=== PATIENT | female | born 1960 | race Caucasian/White ===

== ENCOUNTER 2017-11-29 15:14 | Emergency (ER) | payer MEDICARE, BC ==
[2017-11-29] MEDS ORDERED: Sodium Chloride 0.9% 1,000 ML IV ONE (15:47)
[2017-11-29] MEDS ORDERED: Ondansetron 4 MG/2 ML SDV IV ONE (15:47)
--- NOTE | 2017-11-29 15:50 | EDM.PDOC ---
ED HPI GENERAL MEDICAL PROBLEM - General Chief Complaint: Back Pain or Injury Stated Complaint: HEADACHE/BACK PAIN [id number] Time Seen by Provider: 11/29/17 15:35 Source of Information: Reports: Patient History Limitations: Reports: No Limitations - History of Present Illness INITIAL COMMENTS - FREE TEXT/NARRATIVE: This 57 yo female patient reports to the ED with a headache. The patient reports her headache started on 11/25/17. The patient has been seen by Dr. Obregon (yesterday) and given a pill for nausea and oxycodone for her headaches. The patient reports she called back to Dr. Obregon's office today and was advised to come to the ED. The patient reports that she still has a headache. 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 Obregon) Headache Pain Score (Numeric/FACES): 6 - Related Data Allergies Allergy/AdvReac Type Severity Reaction Status Date / Time No Known Allergies Allergy Verified 07/21/15 07:45 Home Meds: Home Meds Folic Acid 1 mg PO DAILY 01/19/15 [History] Methotrexate Sodium [Methotrexate] 6 tab PO WEEKLY 01/19/15 [History] Albuterol Sulfate [Proair Hfa] 1 puff INH ASDIRECTED 07/17/15 [History] Methylcellulose (with Sugar) [Citrucel] 1 tbsp PO DAILY 07/20/15 [History] Abatacept [Orencia] 125 mg IV WEEKLY 11/29/17 [History] Ondansetron [Zofran ODT] 4 mg PO PRN 11/29/17 [History] oxyCODONE 5 mg PO PRN 11/29/17 [History] Past Medical History HEENT History: Reports: None Cardiovascular History: Reports: None Respiratory History: Reports: COPD Gastrointestinal History: Reports: Irritable Bowel Syndrome Other Gastrointestinal History: LACTOSE INTOLERANCE Genitourinary History: Reports: None BULLION WEIGHER History: Reports: Other BULLION WEIGHER History: FIBROCYSTIC CHANGES OF LEFT BREAST Musculoskeletal History: Reports: Arthritis, RA Other Musculoskeletal History: CLAVICAL FRACTURE; HX OF AC SEPERATION Neurological History: Reports: None Psychiatric History: Reports: None Other Psychiatric History: NICOTINE Endocrine/Metabolic History: Reports: None Other Endocrine/Metabolic History: HIRSUTISM Hematologic History: Reports: None Other Hematologic History: THROMBOCYTOPENIA Immunologic History: Reports: None Oncologic (Cancer) History: Reports: None Dermatologic History: Reports: None - Infectious Disease History Infectious Disease History: Reports: Chicken Pox, Measles, Mumps - Past Surgical History HEENT Surgical History: Reports: None Respiratory Surgical History: Reports: None Female Surgical History: Reports: Breast Biopsy, Hysterectomy Musculoskeletal Surgical History: Reports: None Social & Family History - Family History Family Medical History: Noncontributory - Tobacco Use Smoking Status *Q: Current Every Day Smoker Years of Tobacco use: 20 Packs/Tins Daily: 1 - Caffeine Use Caffeine Use: Reports: Soda, Tea - Recreational Drug Use Recreational Drug Use: No ED ROS GENERAL - Review of Systems Review Of Systems: ROS reveals no pertinent complaints other than HPI. - Physical Exam Exam: See Below Exam Limited By: No Limitations General Appearance: Alert, WD/WN, Severe Distress, Thin Eye Exam: Bilateral Eye: EOMI, Normal Inspection, PERRL Ears: Normal External Exam, Normal Canal, Hearing Grossly Normal, Normal TMs Nose: Normal Inspection, Normal Mucosa, No Blood Throat/Mouth: Normal Inspection, Normal Lips, Normal Teeth, Normal Gums, Normal Oropharynx, Normal Voice, No Airway Compromise Head Exam: Atraumatic, Normocephalic Neck: Normal Inspection, Supple, Non-Tender, Full Range of Motion Respiratory/Chest: No Respiratory Distress, Lungs Clear, Normal Breath Sounds, No Accessory Muscle Use, Chest Non-Tender Cardiovascular: Normal Peripheral Pulses, Regular Rate, Rhythm, No Edema, No Gallop, No JVD, No Murmur, No Rub GI/Abdominal: Normal Bowel Sounds, Soft, Non-Tender, No Organomegaly, No Distention, No Abnormal Bruit, No Mass (Female) Exam: Deferred Rectal (Female) Exam: Deferred Neuro Exam (Abbreviated): Alert, Oriented, CN II-XII Intact, Normal Cognition Back Exam: Normal Inspection, Full Range of Motion, NT Extremities: Normal Inspection, Normal Range of Motion, Non-Tender, No Pedal Edema, Normal Capillary Refill Psychiatric: Normal Affect, Normal Mood Skin Exam: Warm, Dry, Intact, Normal Color, No Rash Course - Vital Signs Last Recorded V/S: Last Vital Signs Temp 37.4 C 11/29/17 17:24 Pulse 64 11/29/17 17:24 Resp 16 11/29/17 17:24 BP 122/50 L 11/29/17 17:24 Pulse Ox 90 L 11/29/17 17:24 - Orders/Labs/Meds Orders: Active Orders 24 hr Category Date Time Status Head wo Cont [CT] Urgent Exams 11/29/17 15:43 Taken UA W/MICROSCOPIC [URIN] Stat Lab 11/29/17 16:02 Ordered [facility] [REF] Urgent Lab 11/29/17 16:04 Received Labs: Laboratory Tests 11/29/17 11/29/17 11/29/17 Range/Units 16:02 16:04 16:04 WBC (5.0-10.0) 10^3/uL RBC (4.2-5.4) 10^6/uL Hgb (12.0-16.0) g/dL Hct (37.0-47.0) % MCV (80-100) fL MCH (27.0-34.0) pg MCHC (33.0-35.0) g/dL Plt Count (150-450) 10^3/uL Neut % (Auto) (42.2-75.2) % Lymph % (Auto) (20.5-50.1) % [place] % (Auto) (2-8) % Eos % (Auto) (1.0-3.0) % Baso % (Auto) (0.0-1.0) % ESR 6 (0-20) mm/hr Sodium (135-145) mmol/L Potassium (3.6-5.0) mmol/L Chloride (101-111) mmol/L Carbon Dioxide (21.0-31.0) mmol/L Anion Gap BUN (7-18) mg/dL Creatinine (0.6-1.3) mg/dL Est Cr Clr Drug Dosing mL/min Estimated GFR (MDRD) BUN/Creatinine Ratio Glucose (74-105) mg/dL Calcium (8.4-10.2) mg/dl Magnesium (1.8-2.5) mg/dL Total Bilirubin (0.2-1.0) mg/dL AST (10-42) IU/L ALT (10-60) IU/L Alkaline Phosphatase (42-121) IU/L C-Reactive Protein 0.7 (0.0-1.3) mg/dL Total Protein (6.7-8.2) g/dl Albumin (3.2-5.5) g/dl Globulin Albumin/Globulin Ratio Amylase (28-100) U/L Lipase (22-51) U/L Urine Color Yellow (YELLOW) Urine Appearance Cloudy (CLEAR) Urine pH 5.5 (5.0-9.0) Ur Specific [place] 1.025 (1.005-1.030) Urine Protein 30 H (NEGATIVE) Urine Glucose (UA) Negative (NEGATIVE) Urine Ketones Negative (NEGATIVE) Urine Occult Blood Negative (NEGATIVE) Urine Nitrite Negative (NEGATIVE) Urine Bilirubin Negative (NEGATIVE) Urine Urobilinogen 1.0 (0.2-1.0) mg/dL Ur Leukocyte Esterase Negative (NEGATIVE) Urine RBC 0-5 /HPF Urine WBC 0-5 (0-5/HPF) /HPF Ur Epithelial Cells Few /HPF Amorphous Sediment Moderate H (0/HPF) /HPF Urine Bacteria Few (0-FEW/HPF) /HPF Urine Mucus Few H /LPF 11/29/17 11/29/17 11/29/17 Range/Units 16:04 16:04 16:04 WBC 1.8 L (5.0-10.0) 10^3/uL RBC 4.68 (4.2-5.4) 10^6/uL Hgb 14.4 (12.0-16.0) g/dL Hct 44.2 (37.0-47.0) % MCV 94.4 D (80-100) fL MCH 30.8 (27.0-34.0) pg MCHC 32.6 L (33.0-35.0) g/dL Plt Count 72 L D (150-450) 10^3/uL Neut % (Auto) 55.0 (42.2-75.2) % Lymph % (Auto) 34.4 (20.5-50.1) % Newton % (Auto) 10.0 H (2-8) % Eos % (Auto) 0.6 L (1.0-3.0) % Baso % (Auto) 0.0 (0.0-1.0) % ESR (0-20) mm/hr Sodium 135 (135-145) mmol/L Potassium 4.5 (3.6-5.0) mmol/L Chloride 97 L (101-111) mmol/L Carbon Dioxide 31.0 (21.0-31.0) mmol/L Anion Gap 11.5 BUN 10 (7-18) mg/dL Creatinine 0.7 (0.6-1.3) mg/dL Est Cr Clr Drug Dosing 70.26 mL/min Estimated GFR (MDRD) > 60 BUN/Creatinine Ratio 14.28 Glucose 111 H (74-105) mg/dL Calcium 8.9 (8.4-10.2) mg/dl Magnesium 1.9 (1.8-2.5) mg/dL Total Bilirubin 0.5 (0.2-1.0) mg/dL AST 21 (10-42) IU/L ALT 17 (10-60) IU/L Alkaline Phosphatase 68 (42-121) IU/L C-Reactive Protein (0.0-1.3) mg/dL Total Protein 6.7 (6.7-8.2) g/dl Albumin 3.9 (3.2-5.5) g/dl Globulin 2.8 Albumin/Globulin Ratio 1.39 Amylase 28 (28-100) U/L Lipase 28 (22-51) U/L Urine Color (YELLOW) Urine Appearance (CLEAR) Urine pH (5.0-9.0) Ur Specific [place] (1.005-1.030) Urine Protein (NEGATIVE) Urine Glucose (UA) (NEGATIVE) Urine Ketones (NEGATIVE) Urine Occult Blood (NEGATIVE) Urine Nitrite (NEGATIVE) Urine Bilirubin (NEGATIVE) Urine Urobilinogen (0.2-1.0) mg/dL Ur Leukocyte Esterase (NEGATIVE) Urine RBC /HPF Urine WBC (0-5/HPF) /HPF Ur Epithelial Cells /HPF Amorphous Sediment (0/HPF) /HPF Urine Bacteria (0-FEW/HPF) /HPF Urine Mucus /LPF Meds: Medications Discontinued Medications Generic Name Dose Route Start Last Admin Trade Name Freq PRN Reason Stop Dose Admin Hydromorphone HCl 0.5 mg 11/29/17 17:01 11/29/17 17:06 Dilaudid IVPUSH 11/29/17 17:02 0.5 mg ONETIME ONE Administration Sodium Chloride 1,000 mls @ 999 mls/hr 11/29/17 15:47 11/29/17 16:09 Normal Saline IV 11/29/17 16:47 999 mls/hr .BOLUS ONE Administration Ondansetron HCl 4 mg 11/29/17 15:47 11/29/17 16:09 Zofran IV 11/29/17 15:48 4 mg ONETIME ONE Administration Departure - Departure Time of Disposition: 17:55 Disposition: Home, Self-Care 01 Condition: Fair Clinical Impression: Migraine Qualifiers: Migraine type: unspecified Status migrainosus presence: with status migrainosus Intractability: intractable Qualified Code(s): G43.911 - Migraine, unspecified, intractable, with status migrainosus - Discharge Information *PRESCRIPTION DRUG MONITORING PROGRAM REVIEWED*: Not Applicable *COPY OF PRESCRIPTION DRUG MONITORING REPORT IN PATIENT ELIDA: Not Applicable Instructions: Migraine Headache, [id number], Pain Medicine Instructions, Easy -to-Read Referrals: Ryan Obregon MD [Primary Care Provider] - Forms: ED Department Discharge Care Plan Goals: The patient and family were advised of the examination, lab and CT results during the visit. The patient was given a dose of Dilaudid and a liter of IV fluid while in the ED. The patient was encouraged to take her current prescription medication as directed. If the patient has any additional symptoms or concerns, the patient should either return to the emergency department or follow-up with her primary care facility. - My Orders Last 24 Hours: My Active Orders 11/29/17 15:43 Head wo Cont [CT] Urgent 11/29/17 16:02 UA W/MICROSCOPIC [URIN] Stat 11/29/17 16:04 [facility] [REF] Urgent - Assessment/Plan Last 24 Hours: My Active Orders 11/29/17 15:43 Head wo Cont [CT] Urgent 11/29/17 16:02 UA W/MICROSCOPIC [URIN] Stat 11/29/17 16:04 [facility] [REF] Urgent
[2017-11-29 16:29] LABS: ANION GAP 11.5; CHLORIDE,CL 97 mmol/L (101-111); SODIUM,NA 135 mmol/L (135-145)
[2017-11-29] MEDS ORDERED: HYDROmorphone 0.5 MG/0.5 ML Syringe IVPUSH ONE (17:01)
[2017-11-29 17:25] VITALS: BP 122/50
--- NOTE | 2017-11-30 08:03 | CT ---
CLINICAL HISTORY: 57-year-old female smoker with posterior head pain (headache). No known trauma. SCAN TECHNIQUE: Volume acquisition of data from an unenhanced CT scan of the head and brain obtained while the patient was lying supine on the Siemens multislice scanner [place], [place]. All data archived in the PACS system for storage, reformatting axial/sagittal/smith l planes and study. INTERPRETATION: 1. Dense mucoperiosteal ethmoid sinuses and suggestion of previous maxillary surgery. Sphenoid and ma stoid sinuses clear. 2. Uniformly thick bony calvarium without sign of skull fracture or underlying brain contusion or epi dural/subdural hematoma. 3. Symmetric fernandez-white matter pattern. Underlying mirror-image normal ventricular system. 4. No supratentorial or posterior fossa mass lesion. No hydrocephalus. 5. No focal areas of ischemic infarct or signs of encephalomalacia. No sign of intracerebral/intraven tricular/subarachnoid bleed. 6. Cerebellum and brainstem unremarkable. CONCLUSION: Paranasal sinusitis. Otherwise negative unenhanced CT scan head and brain.
== END 2017-11-29 18:00 | disposition home or self-care (01) ==
LOC: DL.ED 15:14
DX: G43.911 Migraine, unspecified, intractable, with status migrainosus (principal); J44.9 Chronic obstructive pulmonary disease, unspecified; F17.210 Nicotine dependence, cigarettes, uncomplicated
CPT/HCPCS: 36415; 70450; 80053; 81001; 82150; 83690; 83735; 85025; 85651; 86140; 86788; 96361; 96374; 96375; 99284; J1170; J2405; J7030

== ENCOUNTER 2018-07-06 17:40 | Emergency (ER) | payer MEDICARE, BC ==
[2018-07-06] MEDS ORDERED: Sodium Chloride 0.9% 10 ML Syringe FLUSH PRN (18:46)
--- NOTE | 2018-07-06 19:18 | EDM.PDOC ---
<Nargis Villeda - Last Filed: 07/06/18 19:26> ED HPI GENERAL MEDICAL PROBLEM - General Chief Complaint: Neuro Symptoms/Deficits Stated Complaint: POSSIBLE STROKE POST CT Time Seen by Provider: 07/06/18 18:30 Source of Information: Reports: Patient, Family, RN, RN Notes Reviewed History Limitations: Reports: No Limitations - History of Present Illness INITIAL COMMENTS - FREE TEXT/NARRATIVE: Pt to Er with c/o numbness right leg/ right arm. She was seen in the clinic today by Dr. Corley. BP 150/108 at that time. A head CT, neck xray done today. Patient was called by the clinic and told to return to the ER. Patient states her right leg went numb to the right hip. This happened Monday night. She did have an injection done on the left hip on Monday at noon. She states the numbness to the right arm/ right shoulder began today. She states now the back of her neck hurts. Patient denies hx of stroke, does admit to family hx of stroke. Hx RA, COPD. She admits to headaches, dry cough. Denies visual disturbance, fever, chills, N/V/D. States she is able to walk and bear weight but "slow". Onset: Gradual Generalized Pain Score (Numeric/FACES): 4 - Related Data Allergies Allergy/AdvReac Type Severity Reaction Status Date / Time No Known Allergies Allergy Verified 07/06/18 17:52 Home Meds: Home Meds Albuterol Sulfate [Proair Hfa] 1 puff INH ASDIRECTED 07/17/15 [History] Methylcellulose (with Sugar) [Citrucel] 1 tbsp PO DAILY 07/20/15 [History] Abatacept [Orencia] 125 mg IV ASDIRECTED 11/29/17 [History] Ondansetron [Zofran ODT] 4 mg PO ASDIRECTED PRN 11/29/17 [History] oxyCODONE 5 mg PO ASDIRECTED PRN 11/29/17 [History] Past Medical History HEENT History: Reports: None Cardiovascular History: Reports: None Respiratory History: Reports: COPD Gastrointestinal History: Reports: Irritable Bowel Syndrome Other Gastrointestinal History: LACTOSE INTOLERANCE Genitourinary History: Reports: None COATER BRAKE LININGS History: Reports: Other COATER BRAKE LININGS History: FIBROCYSTIC CHANGES OF LEFT BREAST Musculoskeletal History: Reports: Arthritis, RA Other Musculoskeletal History: CLAVICAL FRACTURE; HX OF AC SEPERATION Neurological History: Reports: None Psychiatric History: Reports: None Other Psychiatric History: NICOTINE Endocrine/Metabolic History: Reports: None Other Endocrine/Metabolic History: HIRSUTISM Hematologic History: Reports: None Other Hematologic History: THROMBOCYTOPENIA Immunologic History: Reports: None Oncologic (Cancer) History: Reports: None Dermatologic History: Reports: None - Infectious Disease History Infectious Disease History: Reports: Chicken Pox, Measles, Mumps - Past Surgical History Head Surgeries/Procedures: Reports: None HEENT Surgical History: Reports: None Respiratory Surgical History: Reports: None Female Surgical History: Reports: Breast Biopsy, Hysterectomy Musculoskeletal Surgical History: Reports: None Social & Family History - Family History Family Medical History: Noncontributory - Tobacco Use Smoking Status *Q: Current Every Day Smoker Years of Tobacco use: 20 Packs/Tins Daily: 0.5 Second Hand Smoke Exposure: No - Caffeine Use Caffeine Use: Reports: Soda, Tea - Recreational Drug Use Recreational Drug Use: No ED ROS GENERAL - Review of Systems Review Of Systems: ROS reveals no pertinent complaints other than HPI. ED EXAM, NEURO - Physical Exam Exam: See Below Exam Limited By: No Limitations General Appearance: Alert, WD/WN, Mild Distress Eye Exam: Bilateral Eye: EOMI, Normal Inspection Ears: Normal External Exam, Hearing Grossly Normal Nose: Normal Inspection Throat/Mouth: Normal Inspection, Normal Voice, No Airway Compromise Head Exam: Atraumatic, Normocephalic Neck: Normal Inspection, Limited Range of Motion, Tender Lateral Respiratory/Chest: No Respiratory Distress, Crackles (throughout), Wheezing ( exp bilateral) Cardiovascular: Normal Peripheral Pulses, Regular Rate, Rhythm, No Edema, No Gallop, No JVD, No Murmur, No Rub GI/Abdominal: Normal Bowel Sounds, Soft, Tender (RLQ) (Female) Exam: Deferred Rectal (Female) Exam: Deferred Neurological: Alert, Normal Mood/Affect, Normal Dorsiflexion, CN II-XII Intact, Normal Plantar Flexion, Normal Gait, Normal Reflexes, No Motor/Sensory Deficits , Oriented x 3 Back Exam: Normal Inspection, Full Range of Motion Extremities: Normal Inspection, Non-Tender, No Pedal Edema, Normal Capillary Refill, Limited Range of Motion Psychiatric: Normal Affect, Normal Mood Skin Exam: Warm, Dry, Intact, Normal Color, No Rash Course - Vital Signs Last Recorded V/S: Last Vital Signs Temp 37.2 C 07/06/18 17:51 Pulse 97 07/06/18 17:51 Resp 16 07/06/18 17:51 BP 186/90 H 07/06/18 21:01 Pulse Ox 92 L 07/06/18 17:51 - Orders/Labs/Meds Orders: Active Orders 24 hr Category Date Time Status EKG 12 Lead [EKG Documentation Completion] [RC] STAT Care 07/06/18 21:16 Ordered Peripheral IV Care [RC] . DIRECTED Care 07/06/18 18:49 Active Abdomen Pelvis w Cont [CT] Urgent Exams 07/06/18 19:19 Taken UA RFX SABINA AND CULT IF INDIC [URIN] Stat Lab 07/06/18 21:01 Received Sodium Chloride 0.9% [Saline Flush] Med 07/06/18 18:46 Active 10 ml FLUSH ASDIRECTED PRN Peripheral IV Insertion Adult [OM.PC] Stat Oth 07/06/18 18:46 Ordered Medication Orders Sodium Chloride (Saline Flush) 10 ml FLUSH ASDIRECTED PRN PRN Reason: Keep Vein Open Last Admin: 07/06/18 19:30 Dose: 10 ml Labs: Laboratory Tests 07/06/18 07/06/18 07/06/18 Range/Units 18:55 18:55 18:55 WBC 4.5 L (5.0-10.0) 10^3/uL RBC 4.90 (4.2-5.4) 10^6/uL Hgb 15.6 (12.0-16.0) g/dL Hct 47.2 H (37.0-47.0) % MCV 96.3 (80-100) fL MCH 31.8 (27.0-34.0) pg MCHC 33.1 (33.0-35.0) g/dL Plt Count 114 L (150-450) 10^3/uL Neut % (Auto) 62.9 (42.2-75.2) % Lymph % (Auto) 27.3 (20.5-50.1) % [place] % (Auto) 8.9 H (2-8) % Eos % (Auto) 0.7 L (1.0-3.0) % Baso % (Auto) 0.2 (0.0-1.0) % Sodium 137 (135-145) mmol/L Potassium 3.5 L (3.6-5.0) mmol/L Chloride 100 L (101-111) mmol/L Carbon Dioxide 26.0 (21.0-31.0) mmol/L Anion Gap 14.5 BUN 15 (7-18) mg/dL Creatinine 0.6 (0.6-1.3) mg/dL Est Cr Clr Drug Dosing 83.13 mL/min Estimated GFR (MDRD) > 60 BUN/Creatinine Ratio 25.00 Glucose 100 (74-105) mg/dL Calcium 8.8 (8.4-10.2) mg/dl Total Bilirubin 0.7 (0.2-1.0) mg/dL AST 18 (10-42) IU/L ALT 18 (10-60) IU/L Alkaline Phosphatase 65 (42-121) IU/L Total Protein 7.0 (6.7-8.2) g/dl Albumin 3.8 (3.2-5.5) g/dl Globulin 3.2 Albumin/Globulin Ratio 1.19 Amylase 38 (28-100) U/L Lipase 22 (22-51) U/L Urine Color (YELLOW) Urine Appearance (CLEAR) Urine pH (5.0-9.0) Ur Specific [place] (1.005-1.030) Urine Protein (NEGATIVE) Urine Glucose (UA) (NEGATIVE) Urine Ketones (NEGATIVE) Urine Occult Blood (NEGATIVE) Urine Nitrite (NEGATIVE) Urine Bilirubin (NEGATIVE) Urine Urobilinogen (0.2-1.0) mg/dL Ur Leukocyte Esterase (NEGATIVE) Urine RBC /HPF Urine WBC (0-5/HPF) /HPF Ur Epithelial Cells /HPF Amorphous Sediment (0/HPF) /HPF Urine Bacteria (0-FEW/HPF) /HPF 07/06/18 Range/Units 21:01 WBC (5.0-10.0) 10^3/uL RBC (4.2-5.4) 10^6/uL Hgb (12.0-16.0) g/dL Hct (37.0-47.0) % MCV (80-100) fL MCH (27.0-34.0) pg MCHC (33.0-35.0) g/dL Plt Count (150-450) 10^3/uL Neut % (Auto) (42.2-75.2) % Lymph % (Auto) (20.5-50.1) % [place] % (Auto) (2-8) % Eos % (Auto) (1.0-3.0) % Baso % (Auto) (0.0-1.0) % Sodium (135-145) mmol/L Potassium (3.6-5.0) mmol/L Chloride (101-111) mmol/L Carbon Dioxide (21.0-31.0) mmol/L Anion Gap BUN (7-18) mg/dL Creatinine (0.6-1.3) mg/dL Est Cr Clr Drug Dosing mL/min Estimated GFR (MDRD) BUN/Creatinine Ratio Glucose (74-105) mg/dL Calcium (8.4-10.2) mg/dl Total Bilirubin (0.2-1.0) mg/dL AST (10-42) IU/L ALT (10-60) IU/L Alkaline Phosphatase (42-121) IU/L Total Protein (6.7-8.2) g/dl Albumin (3.2-5.5) g/dl Globulin Albumin/Globulin Ratio Amylase (28-100) U/L Lipase (22-51) U/L Urine Color Yellow (YELLOW) Urine Appearance Clear (CLEAR) Urine pH 8.0 (5.0-9.0) Ur Specific [place] 1.015 (1.005-1.030) Urine Protein Negative (NEGATIVE) Urine Glucose (UA) Negative (NEGATIVE) Urine Ketones Negative (NEGATIVE) Urine Occult Blood Trace-intact H (NEGATIVE) Urine Nitrite Negative (NEGATIVE) Urine Bilirubin Negative (NEGATIVE) Urine Urobilinogen 1.0 (0.2-1.0) mg/dL Ur Leukocyte Esterase Negative (NEGATIVE) Urine RBC 0-5 /HPF Urine WBC Not seen (0-5/HPF) /HPF Ur Epithelial Cells Rare /HPF Amorphous Sediment Rare (0/HPF) /HPF Urine Bacteria Rare (0-FEW/HPF) /HPF Meds: Medications Generic Name Dose Route Start Last Admin Trade Name Freq PRN Reason Stop Dose Admin Sodium Chloride 10 ml 07/06/18 18:46 07/06/18 19:30 Saline Flush FLUSH 10 ml ASDIRECTED PRN Administration Keep Vein Open Discontinued Medications Generic Name Dose Route Start Last Admin Trade Name Ajay PRN Reason Stop Dose Admin Clonidine HCl 0.1 mg 07/06/18 20:50 07/06/18 21:01 Catapres PO 07/06/18 20:51 0.1 mg ONETIME ONE Administration Iopamidol 75 ml 07/06/18 19:20 07/06/18 19:54 Isovue-300 (61%) IVPUSH 07/06/18 19:21 71 ml ONETIME ONE Administration Departure - Departure Disposition: DC/Tfer to Acute Hospital 02 Clinical Impression: Paresthesia and pain of right extremity, Weakness Headache Qualifiers: Headache type: unspecified Headache chronicity pattern: unspecified pattern Intractability: not intractable Qualified Code(s): R51 - Headache - Discharge Information Forms: Interfacility Transfer EMTALA - My Orders Last 24 Hours: My Active Orders 07/06/18 21:16 EKG 12 Lead [EKG Documentation Completion] [RC] STAT - Assessment/Plan Last 24 Hours: My Active Orders 07/06/18 21:16 EKG 12 Lead [EKG Documentation Completion] [RC] STAT <Willie Mercedes - Last Filed: 07/06/18 21:28> Course - Re-Assessments/Exams Free Text/Narrative Re-Assessment/Exam: 07/06/18 19:50 re-exam; pt states had injection left hip for pain Monday then later that night right hip started hurting with numbness right leg, then right arm got numb with headache on-off all day. saw PMD had CAT showing abn and told to come to ER. CAT show lacunar infarct rec' MRI of head. also pt now c/o pain RUQ region still has GB and low abd also. exam reveal equal bilateral ROM but appears to be weak. 07/06/18 21:[address] Good @ ER who kindly caaepted pt for MRI scan Departure - Departure Time of Disposition: 21:26 Condition: Fair
[2018-07-06] MEDS ORDERED: Iopamidol 612 MG/ML 75 ML Bottle IVPUSH ONE (19:20)
[2018-07-06 19:27] LABS: ANION GAP 14.5; CHLORIDE,CL 100 mmol/L (101-111); SODIUM,NA 137 mmol/L (135-145)
[2018-07-06] MEDS ORDERED: cloNIDine 0.1 MG Tab PO ONE (20:50)
[2018-07-06 21:02] VITALS: BP 186/90
== END 2018-07-06 21:55 ==
LOC: DL.ED 17:40
DX: R20.2 Paresthesia of skin (principal); R20.0 Anesthesia of skin; R53.1 Weakness; R51 Headache; J44.9 Chronic obstructive pulmonary disease, unspecified; F17.210 Nicotine dependence, cigarettes, uncomplicated; Z79.899 Other long term (current) drug therapy
CPT/HCPCS: 36415; 74177; 80053; 81001; 82150; 83690; 85025; 93005; 99285; A9270; Q9967

== ENCOUNTER 2019-06-25 15:25 | Inpatient (IN) | payer MEDICARE, BC ==
[2019-06-25] MEDS ORDERED: Acetaminophen/HYDROcodone 325-10 MG Tab PO PRN (16:00)
[2019-06-25] MEDS ORDERED: Acetaminophen 325 MG Tab PO PRN (16:00)
[2019-06-25] MEDS ORDERED: Docusate Sodium 100 MG Cap PO PRN (16:00)
[2019-06-25] MEDS ORDERED: Non-Formulary Medication 1 Each (Diclofenac Sodium [Voltaren 1% Gel] 1 APPLIC) TOP PRN (16:13)
[2019-06-25] MEDS ORDERED: Sodium Chloride 0.9% 10 ML Syringe FLUSH PRN (16:22)
[2019-06-25] MEDS: cefTRIAXone 1 GM in Sodium Chloride 0.9% 50 ML IV SCH (17:02)
[2019-06-25] MEDS: Sodium Chloride 0.9% 1,000 ML IV SCH (17:02)
[2019-06-25] MEDS: methylPREDNISolone Sodium Succinate 40 MG/1 ML SDV IVPUSH SCH (17:04)
[2019-06-25] MEDS: Azithromycin 500 MG in Sodium Chloride 0.9% 250 ML IV SCH (18:03)
[2019-06-25] MEDS: Albuterol/Ipratropium 3.0-0.5 MG/3 ML Neb Soln NEB SCH ×2 (18:04→18:19)
[2019-06-25 18:06] LABS: ANION GAP 8.4 mEq/L (7-13); CHLORIDE,CL 101 mmol/L (101-111); SODIUM,NA 143 mmol/L (136-145)
[2019-06-25] MEDS: Gabapentin 300 MG Cap PO SCH (21:25)
[2019-06-25] MEDS: Oseltamivir 75 MG Cap PO SCH (21:25)
--- NOTE | 2019-06-25 21:48 | HP ---
CHIEF COMPLAINT: Hypoxemia. HISTORY OF PRESENT ILLNESS: The patient is a 59-year-old female with past medical history of tobacco abuse, COPD, rheumatoid arthritis, CVA, who was admitted from [facility] because the patient has been coughing some productive cough with greenish phlegm for the last 3 weeks and the patient also mentioned that she is a little bit short of breath than her usual, and she also complained of some body aches and pains and also had a temperature a couple of days ago and also for the last couple of days also had some loose bowel movement and diarrhea. She was seen at the [facility] and oxygen saturation was 84% on room air, and she was also noted to have wheezing and COPD exacerbation, and because of this, she was then admitted for further evaluation and management. REVIEW OF SYSTEMS: Patient denies any chest pain, orthopnea, PND, pedal edema, nor any other significant complaints, and she has been compliant with her home medication. PAST MEDICAL HISTORY: Reviewed. HOME MEDICATIONS: 1. Losartan. 2. Lipitor. 3. Gabapentin. 4. Oxycodone. 5. Aspirin. 6. Calcium carbonate. 7. Flovent. 8. Voltaren gel. 9. Albuterol nebulizer. 10.ProAir. ALLERGIES: No known drug allergies. PHYSICAL EXAMINATION: General: The patient is alert and oriented, on oxygen per nasal cannula. Vital Signs: Blood pressure is 98/54, pulse of 84, temperature of 98.2. Weight is 119 pounds. Saturation on room air was 84% at the clinic and on 2 L per nasal cannula is 90%. SHEENT: Normocephalic. There are pink palpebral conjunctivae. Sclerae anicteric. No JVD. No lymphadenopathy. Heart: Regular rate and rhythm. Normal S1 and S2. No gallops. No rubs. Lungs: Have diminished breath sounds bilaterally with scattered expiratory wheeze. No significant crackles. Abdomen: Soft, nontender. Bowel sounds positive. Extremities: Negative for any significant pedal edema. No calf tenderness. LABORATORY DATA: Rapid influenza done at the clinic, results are still pending. ADMITTING DIAGNOSES: 1. Acute hypoxic respiratory failure. 2. Chronic obstructive pulmonary disease exacerbation. 3. Suspected pneumonia. 4. Rheumatoid arthritis. 5. Hypertension. 6. History of cerebrovascular accident. TREATMENT PLAN: The patient is going to be admitted to acute care General Medicine floor. She will be empirically started on IV antibiotics with Rocephin and Zithromax. She will also be started on IV steroid, Solu-Medrol, and she will be on albuterol nebulization, and she will resume on her home medication and the rest of the management as necessary. We will also be getting a baseline CBC, comp panel, BNP, and a chest x-ray. I will also send her stool for analysis and C. diff. [facility] /[id number]
[2019-06-26] MEDS: Albuterol/Ipratropium 3.0-0.5 MG/3 ML Neb Soln NEB SCH ×4 (00:47→17:50)
[2019-06-26] MEDS: methylPREDNISolone Sodium Succinate 40 MG/1 ML SDV IVPUSH SCH ×3 (00:47→15:00)
[2019-06-26] MEDS: Sodium Chloride 0.9% 1,000 ML IV SCH (02:49)
[2019-06-26] MEDS ORDERED: Enoxaparin 30 MG/0.3 ML Syringe SUBCUT SCH (09:00)
[2019-06-26] MEDS: Calcium Carbonate 500 MG Tab.Chew PO SCH (09:30)
[2019-06-26] MEDS: Oseltamivir 75 MG Cap PO SCH ×2 (09:31→21:43)
[2019-06-26] MEDS: Cholecalciferol (Vitamin D3) 25 MCG Tab PO SCH (09:31)
[2019-06-26] MEDS: Gabapentin 300 MG Cap PO SCH ×3 (09:31→21:43)
[2019-06-26] MEDS: Losartan 25 MG Tab PO SCH (09:32)
[2019-06-26] MEDS: atorvaSTATin 20 MG Tab PO SCH (09:33)
--- NOTE | 2019-06-26 10:22 | HP ---
ADDENDUM: SOCIAL HISTORY: The patient lives in [place] and quit smoking about 8 months ago and no alcohol or illicit drug use. [facility] /[id number]
--- NOTE | 2019-06-26 10:41 | PN ---
DATE: 06/26/2019 SUBJECTIVE: The patient had a nasopharyngeal swab for influenza at the clinic yesterday and it came back positive for influenza A. The patient was started on Tamiflu. Lab workup done yesterday, WBC is 3.5, hemoglobin is 14.6, hematocrit 42.9, platelets 88. Comp panel; potassium is 3.4, carbon dioxide is 37, glucose is 116. The rest of the panel unremarkable. BNP is 12, which is within normal limits. Albumin is 3.1. Chest x-ray showed COPD, otherwise no infiltrates noted. The patient this morning is feeling slightly better, appetite is improving, and she slept last night. She denies any chest pain, orthopnea, PND, abdominal pain, nor any other significant complaints. OBJECTIVE: Vital Signs: Blood pressure is 131/57, pulse of 50, respirations 20, saturation is 100% on 2 L, temperature is 98.4. Heart: Regular rate and rhythm. Normal S1 and S2. No gallops. No rubs. Lungs: Diminished breath sounds bilaterally with coarse breath sounds, still with some mild expiratory wheeze bilaterally. Abdomen: Soft, nontender. Bowel sounds positive. Extremities: Negative for any significant edema. No calf tenderness. PLAN: We will continue with her present management and continue with IV antibiotics and Solu-Medrol. I am going to saline lock the IV fluid and we will increase her activity. [facility] /[id number]
[2019-06-26] MEDS: cefTRIAXone 1 GM in Sodium Chloride 0.9% 50 ML IV SCH (15:00)
[2019-06-26] MEDS: Azithromycin 500 MG in Sodium Chloride 0.9% 250 ML IV SCH (15:57)
[2019-06-27] MEDS: methylPREDNISolone Sodium Succinate 40 MG/1 ML SDV IVPUSH SCH ×4 (00:20→23:34)
[2019-06-27] MEDS: Albuterol/Ipratropium 3.0-0.5 MG/3 ML Neb Soln NEB SCH ×4 (00:23→17:49)
[2019-06-27 06:58] LABS: ANION GAP 11.1 mEq/L (7-13); CHLORIDE,CL 107 mmol/L (98-107); SODIUM,NA 145 mmol/L (136-145)
[2019-06-27] MEDS: Calcium Carbonate 500 MG Tab.Chew PO SCH (08:14)
[2019-06-27] MEDS: Losartan 25 MG Tab PO SCH (08:15)
[2019-06-27] MEDS: Cholecalciferol (Vitamin D3) 25 MCG Tab PO SCH (08:15)
[2019-06-27] MEDS: Oseltamivir 75 MG Cap PO SCH ×2 (08:15→20:30)
[2019-06-27] MEDS: Gabapentin 300 MG Cap PO SCH ×3 (08:15→20:29)
[2019-06-27] MEDS ORDERED: Potassium Chloride 10 MEQ Tab.ER PO ONE (08:41)
[2019-06-27] MEDS: atorvaSTATin 20 MG Tab PO SCH (10:10)
--- NOTE | 2019-06-27 11:45 | PN ---
DATE: 06/27/2019 SUBJECTIVE: The patient continues to do well. She is feeling much better. She denies any worsening of shortness of breath. Denies any more diarrhea, chest pain, abdominal pain, nor any other complaints. Lab workup this morning. CBC: WBC is 4.8, hemoglobin is 12.3, hematocrit is 37.3, platelets are 106 (improvement). Chem-6: Potassium is 3.1, glucose is 142, calcium is 8.4. The rest of the panel unremarkable. OBJECTIVE: Vital Signs: Blood pressure is 134/61, pulse of 60, respirations 20, temperature of 98.9, saturation is 95% on 1 L per nasal cannula. Heart: Regular rate and rhythm. Normal S1 and S2. No gallops. No rubs. Lungs: Diminished breath sounds bilaterally, but the wheezing has improved and there are no significant crackles. Abdomen: Soft, nontender. Bowel sounds positive. Extremities: Negative for any pedal edema. No calf tenderness. PLAN: We will give her potassium 40 mEq p.o. x1 today, and we will continue with the rest of her management. If she continues to do well, anticipate discharge in a day or two, and if her saturation is still running low, then she may need to have home oxygen. We will also recheck basic metabolic panel in a.m. [facility] /[id number]
[2019-06-27] MEDS: cefTRIAXone 1 GM in Sodium Chloride 0.9% 50 ML IV SCH (15:12)
[2019-06-27] MEDS: Azithromycin 500 MG in Sodium Chloride 0.9% 250 ML IV SCH (16:03)
[2019-06-28] MEDS: Albuterol/Ipratropium 3.0-0.5 MG/3 ML Neb Soln NEB SCH ×4 (01:02→17:59)
[2019-06-28 06:52] LABS: ANION GAP 10.4 mEq/L (7-13); CHLORIDE,CL 106 mmol/L (98-107); SODIUM,NA 145 mmol/L (136-145)
[2019-06-28] MEDS ORDERED: Potassium Chloride 10 MEQ Tab.ER PO ONE (08:00)
[2019-06-28] MEDS: atorvaSTATin 20 MG Tab PO SCH (08:19)
[2019-06-28] MEDS: Losartan 25 MG Tab PO SCH (08:20)
[2019-06-28] MEDS: Oseltamivir 75 MG Cap PO SCH ×2 (08:21→20:28)
[2019-06-28] MEDS: Cholecalciferol (Vitamin D3) 25 MCG Tab PO SCH (08:21)
[2019-06-28] MEDS: Gabapentin 300 MG Cap PO SCH ×3 (08:22→20:29)
[2019-06-28] MEDS: predniSONE 20 MG Tab PO SCH (08:22)
[2019-06-28] MEDS: Sodium Chloride 0.9% 10 ML Syringe FLUSH PRN ×2 (08:25→20:29)
[2019-06-28] MEDS: Calcium Carbonate 500 MG Tab.Chew PO SCH (10:57)
--- NOTE | 2019-06-28 11:15 | PN ---
DATE: 06/28/2019 SUBJECTIVE: The patient continues to do well. She had a good night sleep. She denies any worsening of shortness of breath. No chest pain, abdominal pain, nausea, vomiting, or any diarrhea. OBJECTIVE: Vital Signs: Blood pressure is 123/50, pulse of 58, respiration of 16, temperature of 99.7, saturation is 93% on 1 L per nasal cannula. Heart: Regular rate and rhythm. Normal S1 and S2. No gallops. No rubs. Lungs: Diminished breath sounds bilaterally. Still with some scattered wheezing. Abdomen: Soft, nontender. Bowel sounds positive. Extremities: Negative for any pedal edema. No calf tenderness. PLAN: We will continue with her IV antibiotics and continue with Tamiflu. I am going to discontinue the Solu-Medrol and we will switch this to prednisone 40 mg a day. If the patient continues to do well, anticipate discharge in a.m. [facility] /[id number]
[2019-06-28] MEDS: cefTRIAXone 1 GM in Sodium Chloride 0.9% 50 ML IV SCH (16:12)
[2019-06-28] MEDS: Azithromycin 500 MG in Sodium Chloride 0.9% 250 ML IV SCH (16:53)
[2019-06-29] MEDS: Albuterol/Ipratropium 3.0-0.5 MG/3 ML Neb Soln NEB SCH ×2 (00:32→07:44)
[2019-06-29 07:36] VITALS: BP 139/73
[2019-06-29 07:46] VITALS: PULSE 63
[2019-06-29] MEDS: predniSONE 20 MG Tab PO SCH (08:04)
[2019-06-29] MEDS: Losartan 25 MG Tab PO SCH (08:04)
[2019-06-29] MEDS: atorvaSTATin 20 MG Tab PO SCH (08:05)
[2019-06-29] MEDS: Gabapentin 300 MG Cap PO SCH (08:06)
[2019-06-29] MEDS: Oseltamivir 75 MG Cap PO SCH (08:06)
[2019-06-29] MEDS: Calcium Carbonate 500 MG Tab.Chew PO SCH (08:07)
[2019-06-29] MEDS: Cholecalciferol (Vitamin D3) 25 MCG Tab PO SCH (08:07)
--- NOTE | 2019-06-29 12:07 | DISCH ---
FINAL DIAGNOSES: 1. Acute hypoxic respiratory failure. 2. Chronic obstructive pulmonary disease exacerbation. 3. Pneumonitis. 4. Influenza A. 5. Rheumatoid arthritis. 6. Hypertension. 7. History of cerebrovascular accident. BRIEF HISTORY OF PRESENT ILLNESS: Please see H and P. PERTINENT LAB, X-RAY, AND OTHER TESTS: Please see H and P. HOSPITAL COURSE: The patient was admitted to General Medicine floor. The patient's influenza test came back positive for influenza A that was done at the clinic, and the patient was started on Tamiflu. Because of the patient's COPD exacerbation, the patient was empirically started on Rocephin IV as well as Zithromax as well as Solu-Medrol. She was also placed on albuterol nebulization and was resumed on her home medication. The patient slowly improved and the patient's diarrhea, nausea, and vomiting also improved as well as the shortness of breath. Prior to discharge, the patient had a walking desaturation. Her resting room air saturation was 87, lowest oxygen level while walking was 82% at 1 L, and post recovery at 1 minute, saturation was 93% at 1 L, and she will be needing 2 L per nasal cannula with activity and this will be ordered for the patient. The patient is going to follow up with Dr. Obregon in 1 week. We will continue with oral antibiotics for the next 1 week, and the patient to finish the 5-day course of Tamiflu. CONDITION ON DISCHARGE: Improved. [facility] /[id number]
--- NOTE | 2019-07-02 09:30 | PN ---
DATE: 06/29/2019 SUBJECTIVE: The patient continues to do well and she had a walking desaturation yesterday and resting room air saturation was 87%. Lowest oxygen level while walking was at 82% at 1 L, and post recovery at 1 minute, saturation was 93% on 1 L and the patient needs 2 L/minute via nasal cannula with activity, and so we will be ordering this on her discharge. The patient denies any chest pain, worsening of shortness of breath, abdominal pain, or any other complaints. LABORATORY WORKUP: This morning. Chem-6; potassium is 3.4 (improvement) and glucose is 140, calcium is 8.2. The rest of the panel unremarkable. OBJECTIVE: Vital Signs: Blood pressure is 139/73, pulse 63, respirations of 18, temperature of 98.4, saturation is 94% on room air. Heart: Regular rate and rhythm. Normal S1 and S2. No gallops. No rubs. Lungs: Has diminished breath sounds on both bases, still with mild expiratory wheeze, but no crackles. Breath sounds equal. Abdomen: Soft, nontender. Bowel sounds positive. Extremities: Negative for any pedal edema. No calf tenderness PLAN: We will discharge the patient home today. Will continue on oral antibiotics and oral steroids. [facility] /[id number]
== END 2019-06-29 12:08 | disposition home or self-care (01) | DRG 193 ==
LOC: UNDOADMIN 15:33 → DL.MS 15:33
PROVIDERS: ADMIT Internal Medicine; ATTEND Internal Medicine
DX: J10.00 Influenza due to other identified influenza virus with unspecified type of pneumonia (principal); J96.01 Acute respiratory failure with hypoxia; J44.0 Chronic obstructive pulmonary disease with (acute) lower respiratory infection; J44.1 Chronic obstructive pulmonary disease with (acute) exacerbation; M06.9 Rheumatoid arthritis, unspecified; I10 Essential (primary) hypertension; Z86.73 Personal history of transient ischemic attack (TIA), and cerebral infarction without residual deficits; Z87.891 Personal history of nicotine dependence; Z79.82 Long term (current) use of aspirin; Z79.899 Other long term (current) drug therapy
CPT/HCPCS: 36415; 71046; 80048; 80053; 83880; 85025; 94618; 94640; A9270-GY; J0456; J0696; J2920; J7030; J7050; J7620-GY

== ENCOUNTER 2020-09-08 05:24 | Day surgery (SDC) | payer MEDICARE, BC ==
[~2020-09-08 05:24] MED LIST: Dextrose 5%-0.45% NaCl 1,000 ML IV SCH; Midazolam 1 MG/ML 2 ML SDV ONE; Sodium Chloride 0.9% 10 ML Syringe FLUSH PRN; fentaNYL 100 MCG/2 ML SDV ONE
[2020-09-08] MEDS ORDERED: fentaNYL 100 MCG/2 ML SDV IV ONE ×3 (05:25→07:13)
[2020-09-08] MEDS ORDERED: Midazolam 1 MG/ML 2 ML SDV IV ONE ×3 (05:25→07:14)
--- NOTE | 2020-09-08 09:42 | OR ---
DATE: 09/08/2020 PROCEDURE: Esophagogastroduodenoscopy and multiple pinch biopsies. INSTRUMENT USED: GIF-HQ190 Olympus video panendoscope. PREMEDICATIONS: No oral or topical anesthesia used. Fentanyl 100 mcg intravenous, Versed 2 mg intravenous. Nasal O2 cannula. The procedure was done under pulse oximetry, BP recording, and electronic device monitor. INDICATION: The patient with longstanding abdominal pain and diarrhea unexplained and not responsive to medical measures. Esophagogastroduodenoscopy is performed for detection of any active erosive lesions. Zazueta esophagus and/or malignancy also under consideration. H pylori status to be determined. Small bowel biopsies to be obtained for any evidence of celiac disease, endoscopic hemostasis therapy if needed. DESCRIPTION OF PROCEDURE: The scope was passed with ease. Adequate visualization of the esophagus was made from proximal to distal areas. No upper esophageal lesions identified. No distal esophageal stricture. No uphill or downhill esophageal varices. No Poonam-Hess tear. No evidence of erosive esophagitis by Prole criteria. No esophageal polyp or tumor mass identified. Z-line was seen at around 40 cm distal to the oral verge. No proximal gastric varices noted. Gastric fundus examination by retroflexion showed no polypoid lesions. No gastric ulcer, malignant mass, or vascular ectasia identified. Duodenal bulb showed no ulcer. Visualized second part of the duodenum showed some mild patchy erythema. Multiple pinch biopsies, 4 in number, were taken from different areas of the second part of the duodenum and tissues were also obtained from the duodenal bulb showing some mild patchy erythema at 9 and 12 o'clock positions and sent for any histopathologic evidence of celiac disease. Mild patchy erythema of the gastric antrum was noted. Multiple pinch biopsies were taken from the gastric antrum and proximal body and sent for PyloriTek test for H pylori and histopathology. No bleeding was noted from any of the visualized areas at the completion of examination. Photographs were taken of the duodenal bulb, gastric antrum, fundus, and distal esophagus. IMPRESSION: Normal study. The patient tolerated the procedure well. [facility] /[id number]
[2020-09-09 10:43] VITALS: BP 123/56; PULSE 62
== END 2020-09-08 09:29 | disposition home or self-care (01) ==
LOC: DL.ENDO 05:24
PROVIDERS: ATTEND Internal Medicine Gastroenterology
DX: K31.7 Polyp of stomach and duodenum (principal); K31.89 Other diseases of stomach and duodenum; K21.9 Gastro-esophageal reflux disease without esophagitis; K58.9 Irritable bowel syndrome, unspecified; J44.9 Chronic obstructive pulmonary disease, unspecified; D69.6 Thrombocytopenia, unspecified; E55.9 Vitamin D deficiency, unspecified; M06.9 Rheumatoid arthritis, unspecified; D72.819 Decreased white blood cell count, unspecified; N60.19 Diffuse cystic mastopathy of unspecified breast; Z98.890 Other specified postprocedural states
CPT/HCPCS: 43239; 87077; J2250; J3010; J7042; 88305

== ENCOUNTER → 2020-10-09 | Day surgery (SDC) | payer MEDICARE, BC ==
[~2020-10-09] MED LIST changes: +Midazolam 1 MG/ML 2 ML SDV IV ONE; +fentaNYL 100 MCG/2 ML SDV IV ONE
[2020-10-09 07:34] VITALS: BP 114/44; PULSE 62
--- NOTE | 2020-10-09 10:16 | OR ---
DATE: 10/09/2020 PROCEDURES: Total colonoscopy, cold snare polypectomy, and multiple pinch biopsies. INSTRUMENT USED: PCF-H190DL Olympus video colonoscope. PREMEDICATIONS: Fentanyl 125 mcg intravenous, Versed 4 mg intravenous. Nasal O2 cannula. The procedure was done under pulse oximetry, BP recording, and twisting frame operator. INDICATION: The patient with chronic persistent diarrhea and rectal bleeding, unexplained, and not responsive to medical measures. Colonoscopic examination is done for detection of any polypoid lesions and removal. Biopsies to be obtained for any evidence of microscopic colitis. Endoscopic hemostasis therapy if needed. DESCRIPTION OF PROCEDURE: Initial rectal exam showed laxed anal sphincter. Rigid anoscopy was normal. The colonoscope was passed with ease. In the distal sigmoid colon, diminutive benign-appearing polyp was noted. Photograph was taken. Cold snare polypectomy was done. The tissue was retrieved and sent for histopathology. There was considerable amount of deformity involving the distal left colon. The scope was passed up to the ileocecal area. Photographs were taken of the normal-appearing cecum identified by appendiceal orifice and ileocecal folds, which were found to be thin lipped, preventing further advancement of the scope to visualize terminal ileum. No bleeding was noted from any of the visualized areas at the commencement of the examination. The bowel preparation was found to be adequate, Napier scale 2 in right and left colons, 3 in transverse colon, total score 7. No vascular ectasia. No large isolated ulceration seen. No evidence of diffuse inflammatory bowel disease in the form of friability, contact bleeding, or ulcerations. Probing the proximal sides of folds and flexures using adequate distention and clearing up the stool material, withdrawal of the scope was made. Multiple pinch biopsies were taken from the normal-appearing mucosa of the mid transverse colon, mid descending colon, and rectosigmoid, and sent for any pathologic evidence of microscopic colitis. No bleeding was noted from any of the visualized areas at the completion of examination. IMPRESSION: Diminutive sigmoid polyp. The patient tolerated the procedure well. [facility] /[id number]
== END | disposition home or self-care (01) ==
LOC: DL.ENDO 06:04
PROVIDERS: ATTEND Internal Medicine Gastroenterology
DX: K63.5 Polyp of colon (principal); K52.9 Noninfective gastroenteritis and colitis, unspecified; M06.9 Rheumatoid arthritis, unspecified; K21.9 Gastro-esophageal reflux disease without esophagitis; J44.9 Chronic obstructive pulmonary disease, unspecified
CPT/HCPCS: J2250; J3010; J7042

== ENCOUNTER 2021-10-04 11:34 | Emergency (ER) | payer MEDICARE, BC ==
[2021-10-04 12:30] VITALS: BP 196/92; PULSE 84
[2021-10-04] MEDS ORDERED: Albuterol/Ipratropium 3.0-0.5 MG/3 ML Neb Soln NEB ONE (13:09)
[2021-10-04 13:45] LABS: ANION GAP 3.2 mEq/L (7-13); CHLORIDE,CL 107 mmol/L (98-107); SODIUM,NA 144 mmol/L (136-145)
[2021-10-04 13:46] LABS: ESTIMATED GFR 86 mL/min (>=60)
[2021-10-04 14:23] LABS: CORONAVIRUS COVID-19 NAA NEGATIVE (NEGATIVE); RESPIRATORY SYNCYTIAL VIR NAA NEGATIVE (NEGATIVE)
[2021-10-04] MEDS ORDERED: methylPREDNISolone Sodium Succinate 125 MG/2 ML SDV IVPUSH ONE (14:30)
[2021-10-04] MEDS ORDERED: Furosemide 20 MG/2 ML VIAL IVPUSH ONE (14:30)
== END 2021-10-04 16:40 | disposition home or self-care (01) ==
LOC: DL.ED 11:34
DX: J44.9 Chronic obstructive pulmonary disease, unspecified (principal); I10 Essential (primary) hypertension; E78.00 Pure hypercholesterolemia, unspecified; K21.9 Gastro-esophageal reflux disease without esophagitis; Z79.899 Other long term (current) drug therapy; Z88.8 Allergy status to other drugs, medicaments and biological substances; Z20.822 Contact with and (suspected) exposure to COVID-19
CPT/HCPCS: 0241U; 36415; 71045; 80053; 83605; 83880; 84484; 85025; 86140; 94640; 96374; 96375; 99285; J1940; J2930; J7620-GY

== ENCOUNTER 2022-08-03 15:25 | Emergency (ER) | payer MEDICARE, BC ==
[~2022-08-03 15:25] MED LIST changes: -Dextrose 5%-0.45% NaCl 1,000 ML IV SCH; -Midazolam 1 MG/ML 2 ML SDV IV ONE; -Midazolam 1 MG/ML 2 ML SDV ONE; -fentaNYL 100 MCG/2 ML SDV IV ONE; -fentaNYL 100 MCG/2 ML SDV ONE
[2022-08-03] MEDS ORDERED: Ondansetron 4 MG/2 ML SDV IVPUSH ONE (15:38)
[2022-08-03] MEDS ORDERED: Sodium Chloride 0.9% 1,000 ML IV ONE (15:44)
[2022-08-03 16:00] LABS: ANION GAP 11.7 mEq/L (7-13); CHLORIDE,CL 108 mmol/L (98-107); SODIUM,NA 146 mmol/L (136-145)
[2022-08-03 16:05] LABS: ESTIMATED GFR 92 mL/min (>=60)
[2022-08-03 16:49] LABS: CORONAVIRUS COVID-19 NAA NEGATIVE (NEGATIVE); RESPIRATORY SYNCYTIAL VIR NAA NEGATIVE (NEGATIVE)
[2022-08-03 17:33] VITALS: BP 135/63; PULSE 60
== END 2022-08-03 17:13 | disposition home or self-care (01) ==
LOC: DL.ED 15:25
DX: K52.9 Noninfective gastroenteritis and colitis, unspecified (principal); E78.00 Pure hypercholesterolemia, unspecified; I10 Essential (primary) hypertension; J44.9 Chronic obstructive pulmonary disease, unspecified; Z86.73 Personal history of transient ischemic attack (TIA), and cerebral infarction without residual deficits; Z79.82 Long term (current) use of aspirin; Z79.899 Other long term (current) drug therapy; Z20.822 Contact with and (suspected) exposure to COVID-19
CPT/HCPCS: 0241U; 36415; 76705; 80053; 82150; 83605; 83690; 83735; 84484; 85025; 86140; 87040; 93005; 93010; 96361; 96374; 99284; 99284-25; J2405; J3490; J7030

== ENCOUNTER 2025-01-27 14:52 | Inpatient (IN) | payer MEDICARE, BC ==
[2025-01-27 15:15] LABS: BASOPHILS PERCENT AUTO 0.2 % (0.0-1.0); EOSINOPHILS PERCENT AUTO 0.1 % (1.0-3.0); LYMPHOCYTES PERCENT AUTO 15.5 % (20.5-50.1); MONOCYTES PERCENT AUTO 8.9 % (2-8); NEUTROPHILS PERCENT AUTO 75.3 % (42.2-75.2); PLATELET COUNT,PLT 124 10^3/uL (150-450); RED BLOOD CELL COUNT 4.37 10^6/uL (4.2-5.4); WHITE BLOOD CELL COUNT,WBC 14.8 10^3/uL (5.0-10.0)
[2025-01-27 15:32] LABS: BICARBONATE,VENOUS 36 mmol/l (19-25); O2 DELIVERY DEVICE OM; O2 SATURATION VENOUS 56.8 % (60-80); PH,VENOUS 7.36 (7.31-7.41); PO2 VENOUS 41 mmHg (35-42)
[2025-01-27 15:33] LABS: BASE EXCESS VENOUS 8.3 mmol/l ((-2)-(+3)); PCO2 VENOUS 66 mmHg (41-51)
[2025-01-27] MEDS: methylPREDNISolone Sodium Succinate 125 MG/2 ML SDV IVPUSH ONE (15:39)
[2025-01-27 15:45] LABS: A/G RATIO 0.8; ALANINE AMINOTRANSFERASE,ALT 22.0 U/L (14-59); ASPARTATE AMNIOTRANSFERASE,AST 21.0 U/L (15-37); BILIRUBIN TOTAL 1.4 mg/dL (0.2-1.0); BLOOD UREA NITROGEN,BUN 10.0 mg/dL (7-18); CARBON DIOXIDE,CO2 35.0 mmol/L (21-32); CHLORIDE,CL 94.0 mmol/L (98-107); CREATININE 0.67 mg/dL (0.55-1.02); EST CRCL DRUG DOSING (CG) 73.73 mL/min; GLUCOSE RANDOM 128.0 mg/dL (70-99); POTASSIUM,K 3.3 mmol/L (3.5-5.1); PROTEIN TOTAL,TP 7.6 g/dL (6.4-8.2); SODIUM,NA 134.0 mmol/L (136-145)
[2025-01-27 15:46] LABS: ESTIMATED GFR 97.0 mL/min (>=60)
[2025-01-27] MEDS ORDERED: Magnesium Sulfate/D5W 1 GM/100 ML BAG IV ONE (15:57)
[2025-01-27] MEDS: Potassium Chloride 10 MEQ Tab.ER PO ONE (16:26)
[2025-01-27] MEDS: Magnesium Sulfat/D5W 1GM/100ML 100 ML IV ONE (16:26)
[2025-01-27] MEDS: Iopamidol 755 Mg/ML 100 ML Bottle IVPUSH ONE (16:37)
[2025-01-27 18:33] LABS: O2 DELIVERY DEVICE NASAL CANNULA
[2025-01-27 18:38] LABS: BASE EXCESS ARTERIAL 7 mmol/L ((-2)-(+3)); BICARBONATE,ARTERIAL 34.1 mmol/L (22-26); O2 SATURATION ARTERIAL 95 % (95-100); PCO2 ARTERIAL 63 mmHg (35-45); PH,ARTERIAL 7.35 (7.35-7.45); PO2 ARTERIAL 86 mmHg (70-100)
[2025-01-27] MEDS ORDERED: Albuterol 0.083% 2.5 MG/3 ML Neb Soln NEB PRN (19:14)
[2025-01-27 19:49] LABS: T4 FREE 1.32 ng/dL (0.76-1.46); TSH ULTRASENSITIVE 0.74 uIU/mL (0.36-3.74)
[2025-01-27] MEDS: Furosemide 20 MG/2 ML VIAL IVPUSH ONE (20:43)
[2025-01-27] MEDS: Heparin Sodium 5,000 Units/ML Vial SUBCUT SCH (20:50)
[2025-01-28] MEDS: Albuterol 0.083% 2.5 MG/3 ML Neb Soln NEB SCH (01:13)
[2025-01-28] MEDS: methylPREDNISolone Sodium Succinate 40 MG/1 ML SDV IVPUSH SCH (05:31)
[2025-01-28 06:19] LABS: BASOPHILS PERCENT AUTO 0.1 % (0.0-1.0); EOSINOPHILS PERCENT AUTO 0.0 % (1.0-3.0); LYMPHOCYTES PERCENT AUTO 15.8 % (20.5-50.1); MONOCYTES PERCENT AUTO 1.2 % (2-8); NEUTROPHILS PERCENT AUTO 82.9 % (42.2-75.2); PLATELET COUNT,PLT 108 10^3/uL (150-450); RED BLOOD CELL COUNT 4.41 10^6/uL (4.2-5.4); WHITE BLOOD CELL COUNT,WBC 7.5 10^3/uL (5.0-10.0)
[2025-01-28 06:36] LABS: BLOOD UREA NITROGEN,BUN 15.0 mg/dL (7-18); CARBON DIOXIDE,CO2 37.0 mmol/L (21-32); CHLORIDE,CL 101.0 mmol/L (98-107); CREATININE 0.79 mg/dL (0.55-1.02); EST CRCL DRUG DOSING (CG) 60.72 mL/min; GLUCOSE RANDOM 139.0 mg/dL (70-99); PHOSPHORUS 3.3 mg/dL (2.6-4.7); POTASSIUM,K 4.2 mmol/L (3.5-5.1); SODIUM,NA 143.0 mmol/L (136-145)
[2025-01-28 06:38] LABS: ESTIMATED GFR 83.0 mL/min (>=60)
[2025-01-28 15:19] LABS: FOLIC ACID 7.7 ng/mL (8.6-58.9)
[2025-01-28] MEDS: Potassium Chloride 10 MEQ Tab.ER PO SCH (16:59)
[2025-01-29 13:50] VITALS: BP 127/68; PULSE 85
[2025-01-29] MEDS: FLU (Fluad Triv) 25-26 (65UP)/MF59C/PF 45 MCG/0.5 ML Syringe IM ONE (14:08)
[2025-01-31 21:46] LABS: MYCOPLASMA IGM 0.04 U/L (<=0.76)
== END 2025-01-29 14:50 | disposition home or self-care (01) | DRG 189 ==
LOC: DL.ED 14:52 → DL.MS 18:51
PROVIDERS: ADMIT Internal Medicine; ATTEND Internal Medicine
PROC: 4A033R1 Measurement of Arterial Saturation, Peripheral, Percutaneous Approach (ICD-10-PCS; principal; 2025-01-27)
PROC: 3E02340 Introduction of Influenza Vaccine into Muscle, Percutaneous Approach (ICD-10-PCS; principal; 2025-01-27)
DX: J96.21 Acute and chronic respiratory failure with hypoxia (principal); I10 Essential (primary) hypertension; J44.1 Chronic obstructive pulmonary disease with (acute) exacerbation; J96.22 Acute and chronic respiratory failure with hypercapnia; E83.42 Hypomagnesemia; E87.6 Hypokalemia; E78.5 Hyperlipidemia, unspecified; K21.9 Gastro-esophageal reflux disease without esophagitis; K58.9 Irritable bowel syndrome, unspecified; M06.9 Rheumatoid arthritis, unspecified; M19.90 Unspecified osteoarthritis, unspecified site; N60.19 Diffuse cystic mastopathy of unspecified breast; E86.0 Dehydration; I50.9 Heart failure, unspecified; E78.00 Pure hypercholesterolemia, unspecified; I11.0 Hypertensive heart disease with heart failure; G43.909 Migraine, unspecified, not intractable, without status migrainosus; M81.0 Age-related osteoporosis without current pathological fracture; E55.9 Vitamin D deficiency, unspecified; Z90.49 Acquired absence of other specified parts of digestive tract; Z98.890 Other specified postprocedural states; Z79.82 Long term (current) use of aspirin; Z86.73 Personal history of transient ischemic attack (TIA), and cerebral infarction without residual deficits; Z79.899 Other long term (current) drug therapy; Z90.710 Acquired absence of both cervix and uterus
CPT/HCPCS: 36415; 36600; 71046; 71275; 80053; 82803 ×2; 83605; 83735; 83880; 84439; 84443; 84484; 85025; 86140; 86738; 87040 ×2; 87428; 94640; 96365; 96367; 96375; 99285; A9270 ×3; J0456; J0696; J2919; J3475; J7040; J7050; Q9967; 80048; 82607; 82746; 84100; 90653; 93010; 93306; 99223; 99232; 99239; G0008; J1644; J1808; J1938; J7512